=== PATIENT | female | born 1935 | race Two or more races ===

== ENCOUNTER 2025-07-17 09:39 | Outpatient (CLI) | payer MEDICARE ==
[2025-07-17 10:36] LABS: Hematocrit 43.0 % (36.0-46.0); Hemoglobin 14.4 g/dL (12.2-16.2); Mean Corpuscular Hemoglobin 32.7 pg (28.0-32.0); Mean Corpuscular Volume 97.5 fL (80.0-100.0); Nucleated Red Blood Cells % 0.0 %
[2025-07-17 11:01] LABS: Alanine Aminotransferase 14 U/L (7-40); Albumin 4.3 g/dL (3.2-4.8); Anion Gap 7 (5-15); BUN/Creatinine Ratio 18.6 (10.0-20.0); Blood Urea Nitrogen 16 mg/dL (9-23); Calcium 9.9 mg/dL (8.7-10.4); Carbon Dioxide 30 mmol/L (20-31); Chloride 104 mmol/L (98-107); Glucose 88 mg/dL (74-106); Potassium 4.2 mmol/L (3.5-5.1); Sodium 141 mmol/L (136-145); Total Protein 7.5 g/dL (5.7-8.2); Triglycerides 114 mg/dL (< 150)
[2025-07-17 11:02] LABS: Bilirubin, Total 0.5 mg/dL (0.2-1.0); Cholesterol 192 mg/dL (< 200); HDL Cholesterol 58 mg/dL (40-59)
[2025-07-17 11:07] LABS: Iron 120.0 ug/dL (50-170)
[2025-07-17 11:10] LABS: Total Iron Binding Capacity 318.0 ug/dL (250-425)
[2025-07-17 11:11] LABS: Alkaline Phosphatase 157 U/L (46-116)
[2025-07-17 13:19] LABS: Hepatitis A Total Antibody Positive (Negative); Hepatitis B Surface Antigen Negative (Negative); Hepatitis C Antibody Negative (Negative)
== END 2025-07-17 17:00 | disposition home or self-care (01) ==
LOC: LAB 09:39
PROVIDERS: ATTEND Licensed Practical Nurse
DX: I10 Essential (primary) hypertension (principal); R53.0 Neoplastic (malignant) related fatigue; E55.9 Vitamin D deficiency, unspecified; D64.9 Anemia, unspecified; Z13.1 Encounter for screening for diabetes mellitus; Z00.01 Encounter for general adult medical examination with abnormal findings; Z13.29 Encounter for screening for other suspected endocrine disorder
CPT/HCPCS: 36415; 80053; 80061; 82043; 82306; 82728; 83036; 83540; 83550; 84443; 85025; 86704; 86706; 86708; 86803; 87340